=== PATIENT | male | born 1960 | race Caucasian/White ===

== ENCOUNTER 2019-09-16 15:54 | Inpatient (IN) | payer BC ==
[~2019-09-16] VITALS: Ht 185.4 cm; Wt 91.3 kg
[~2019-09-16 15:54] MED LIST: METO50 PO
[2019-09-16 16:46] LABS: BASOPHILS ABSOLUTE AUTO 0.09 K/mm3 (0.00-0.23); BASOPHILS PERCENT AUTO 1 % (0-2); EOSINOPHILS ABSOLUTE AUTO 0.15 K/mm3 (0.00-0.68); EOSINOPHILS PERCENT AUTO 1 % (0-6); Hematocrit 52.8 % (37.0-53.0); Hemoglobin 16.9 g/dL (13.5-17.5); IMMATURE GRAN ABSOLUTE AUTO 0.06 K/mm3 (0.00-0.10); IMMATURE GRAN PERCENT AUTO 0 % (0-1); LYMPHOCYTES ABSOLUTE AUTO 2.12 K/mm3 (0.84-5.20); LYMPHOCYTES PERCENT AUTO 12 % (21-46); MONOCYTES ABSOLUTE AUTO 1.16 K/mm3 (0.16-1.47); MONOCYTES PERCENT AUTO 7 % (4-13); Mean Corpuscular HGB 28.8 pg (26.0-34.0); Mean Corpuscular Volume 90 fL (80-100); Mean Platelet Volume 9.7 fL (9.1-12.4); NEUTROPHILS ABSOLUTE AUTO 13.73 K/mm3 (1.96-9.15); NEUTROPHILS PERCENT AUTO 79 % (41-73); Platelet Count 331 K/mm3 (150-400); RDW Coefficient Variation 12.9 % (11.7-14.2); RDW Standard Deviation 42.5 fL (35.1-46.3); Red Blood Cell Count 5.86 M/mm3 (4.30-5.90); White Blood Cell Count 17.31 K/mm3 (4.00-11.30)
[2019-09-16] MEDS ORDERED: IRBESARTAN300 MG PO (16:54)
[2019-09-16 17:07] LABS: Alanine Aminotransfer (ALT/SGP 99 U/L (12-78); Albumin, Blood 3.5 g/dL (3.4-5.0); Alk Phos 63 U/L (50-136); Anion Gap 10 mmol/L (6-16); Aspartate Aminotrans (AST/SGOT 66 U/L (12-37); Bilirubin, Total 3.4 mg/dL (0.1-1.0); Blood Urea Nitrogen 18 mg/dL (8-24); Bun/Creatinine Ratio 18.7 (12.0-20.0); CO2, Blood 23 mmol/L (21-32); Calcium, Blood 9.2 mg/dL (8.5-10.1); Chloride, Blood 101 mmol/L (98-108); Creatinine, Blood 0.96 mg/dL (0.60-1.20); Globulin, Blood 3.4 g/dL (2.2-4.0); Glomerular Filtration Rate >60 (60-); Glucose, Blood 170 mg/dL (70-99); Potassium, Blood 4.3 mmol/L (3.5-5.5); Sodium, Blood 134 mmol/L (136-145); Total Protein, Blood 6.9 g/dL (6.4-8.2); Troponin I 0.077 ng/mL (0.000-0.040)
[2019-09-16 19:30] LABS: Magnesium, Blood 2.2 mg/dL (1.6-2.4); Phosphorus, Blood 3.4 mg/dL (2.5-4.9)
[2019-09-16 20:31] LABS: PCO2 Arterial 31.8 mmHg (35-45); PO2 Arterial 54.9 mmHg (80-100); pH Blood Arterial 7.39 (7.35-7.45)
--- NOTE | 2019-09-16 21:21 | NUR ---
PT ARRIVES TO ICU AT 2039 VIA STRETCHER WITH 4/10 CHEST PAIN, AND DYSPNEA. HE KEEPS SAYING HE IS FEELING WORSE, MORE SOB, AND DIZZY. PT HAS ADEQUATE BP, HR IS 100, SATS ARE IN 80'S (ALTHOUGH IT IS A POOR WAVEFORM RIGHT NOW). WILL START FLUID BOLUS PER DAWNA, AND GET HIM ON THE BIPAP.
--- NOTE | 2019-09-16 21:42 | NUR ---
UPDATE PT APPEARS TO BE MORE ANXIOUS FROM CHEST PAIN AND OVERALL FEELINGS OF 'CRUMMINESS', AND IS SOB OFF AND ON. HE IS STATING HE FEEL LIKE HE IS DYING, AND HAS ASKED ME TO SLOW DOWN, WHEN TALKING TO HIM, AND THAT HE DOESN'T WANT TO TALK ABOUT HIS CONDITION. HE SEEMS TO BE MORE ANXIOUS AROUND HIS SON AND DAUGHTER. HE IS VERY COLD, AND HIS PRESSURES SEEM TO BE DECREASING. BARTOLOME IN ROOM ASSESSING PT. FLUID BOLUS IS INFUSING AT 500ML/HR FOR A TOTAL VOLUME OF 500ML PER DAWNA REQUEST.
[2019-09-16 22:34] LABS: pH Blood Arterial 7.24 (7.35-7.45)
[2019-09-16 22:35] LABS: PCO2 Arterial 31 mmHg (35-45); PO2 Arterial 63.1 mmHg (80-100)
--- NOTE | 2019-09-16 23:50 | NUR ---
ALEXEI IN ROOM PUTTING IN CENTRAL LINE. PRIOR TO PROCEDURE PT STATED HIS CP WAS ONLY AT A 2 AND HE WASNT SOB. BP IS OKAY CURRENTLY, AND HR IS CONTROLLED. DERRICK IS TALKING WITH SON AND DAUGHTER REGARDING THE CURRENT SITUATION AND PLAN OF CARE.
[2019-09-17 01:03] LABS: International Normalized Ratio 1.54; Prothrombin Time Results 16.1 Sec (9.7-11.5)
[2019-09-17 01:14] LABS: U Amphetamine Screen Not Detected; U Barbituate Screen Not Detected; U Benzodiazapine Screen Not Detected; U Buprenorphine Screen Not Detected; U Cannabinoids Screen Not Detected; U Cocaine Screen Not Detected; U Methadone Screen Not Detected; U Methamphetamine Screen Not Detected; U Opiates Screen DETECTED; U Oxycodone Screen Not Detected; U Phencyclidine Screen Not Detected; U Propoxyphene Screen Not Detected
--- NOTE | 2019-09-17 02:32 | NUR ---
UPDATE PT IS STATING HE "... FEELS BETTER". HIS CHEST PAIN IS MINIMAL, RATING IT AT A 2/10 AND THAT HE DOESN'T FEEL SOB. HIS SKIN IS WARMER THAN BEFORE - WITH STABLE VITALS. HE REMAINS IN AFIB. HE HAS HEPARIN AT 13 UNITS/KG/HR. HE HAS A CENTRAL LINE. I TOOK THE SCHULTE OUT AT HIS PERSISTANT REQUEST. PLAN IS THAT HE WILL USE URINAL, BUT IF HE CANT VOID INTO URINAL I TOLD HIM THAT WE WOULD HAVE TO PUT THE SCHULTE BACK IN. HE REMAINS OFF BIPAP, BUT AGREED TO GO BACK ON IT WHEN HE GOES TO SLEEP. HE WAS TAKEN OFF DOPAMINE, AND CARDIZEM EARLY ON ([phone]) AND WAS NEVER STARTED ON LEVO OR DOBUTAMINE. HE REMAINS IN AFIB, RATE 100-120. BED IS LOW AND LOCKED. CALL LIGHT WITHIN REACH.
[2019-09-17 03:52] LABS: BASOPHILS ABSOLUTE AUTO 0.02 K/mm3 (0.00-0.23); BASOPHILS PERCENT AUTO 0 % (0-2); EOSINOPHILS ABSOLUTE AUTO 0.01 K/mm3 (0.00-0.68); EOSINOPHILS PERCENT AUTO 0 % (0-6); Hematocrit 47.8 % (37.0-53.0); Hemoglobin 15.9 g/dL (13.5-17.5); IMMATURE GRAN ABSOLUTE AUTO 0.14 K/mm3 (0.00-0.10); IMMATURE GRAN PERCENT AUTO 1 % (0-1); LYMPHOCYTES ABSOLUTE AUTO 1.15 K/mm3 (0.84-5.20); LYMPHOCYTES PERCENT AUTO 7 % (21-46); MONOCYTES ABSOLUTE AUTO 1.07 K/mm3 (0.16-1.47); MONOCYTES PERCENT AUTO 6 % (4-13); Mean Corpuscular HGB 29.3 pg (26.0-34.0); Mean Corpuscular HGB Conc 33.3 g/dL (31.5-36.5); Mean Corpuscular Volume 88 fL (80-100); Mean Platelet Volume 9.7 fL (9.1-12.4); NEUTROPHILS ABSOLUTE AUTO 14.97 K/mm3 (1.96-9.15); NEUTROPHILS PERCENT AUTO 86 % (41-73); Platelet Count 264 K/mm3 (150-400); RDW Coefficient Variation 12.9 % (11.7-14.2); RDW Standard Deviation 41.6 fL (35.1-46.3); Red Blood Cell Count 5.42 M/mm3 (4.30-5.90); White Blood Cell Count 17.36 K/mm3 (4.00-11.30)
[2019-09-17 04:12] LABS: Alanine Aminotransfer (ALT/SGP 253 U/L (12-78); Albumin, Blood 3.2 g/dL (3.4-5.0); Albumin/Globulin Ratio 1.1 (0.8-1.8); Alk Phos 53 U/L (50-136); Anion Gap 9 mmol/L (6-16); Aspartate Aminotrans (AST/SGOT 244 U/L (12-37); Bilirubin, Total 4.1 mg/dL (0.1-1.0); Blood Urea Nitrogen 23 mg/dL (8-24); CHOL/HDL RATIO 4.3; CO2, Blood 23 mmol/L (21-32); Calcium, Blood 8.4 mg/dL (8.5-10.1); Chloride, Blood 102 mmol/L (98-108); Cholesterol 98 mg/dL (50-200); Creatinine, Blood 0.96 mg/dL (0.60-1.20); Globulin, Blood 2.8 g/dL (2.2-4.0); Glomerular Filtration Rate >60 (60-); Glucose, Blood 146 mg/dL (70-99); HDL Cholesterol 23 mg/dL (>39); LDL/HDL RATIO 2.9; Low Density Lipoprotein Chol 67 mg/dL (0-110); Potassium, Blood 4.5 mmol/L (3.5-5.5); Sodium, Blood 134 mmol/L (136-145); Triglycerides 38 mg/dL (30-160); Very Low Density Lipoprot Chol 7 mg/dL (6-32)
--- NOTE | 2019-09-17 07:39 | NUR ---
SHIFT SUMMARY PT HAD A MUCH BETTER TIME AFTER THE ACUTE EVENTS THAT OCCURED EARLIER ON. HE HAS BEEN ON BIPAP 24/04, 25% SAT'ING > 93% ALL NIGHT. CHEST PAIN HAS BEEN MINIMAL. ANXIETY/SOB HAS BEEN MINIMAL. HIS HR IS FAST, 100-120; BLOOD PRESSURES HAVE BEEN GREAT. SCHULTE IS OUT. HE HAD 415ML OF URINE THROUGHOUT NIGHT. HIS MENTATION IS BASELINE, TIRED/LETHARGIC - BUT MORE ALERT THAN BEFORE. BED IS LOW AND LOCKED. CALL LIGHT WITHIN REACH. SEE PREVIOUS NOTES FOR DETAILED EVENTS THAT OCCURED.
--- NOTE | 2019-09-17 08:00 | NUR ---
INITIAL ASSESMENT PT ALERT AND AROUSABLE TO VERBAL STIM, FOLLOWS COMMANDS AND DENIES PAIN. AF IN THE 110-130S SBP STABLE PALP THREADY PULSES T/O AND AFEBRILE WITH NO CHEST PAIN. PT REMAINS ON 16/8 BIPAP AND TOLERATING WELL WITH SATS IN HIGH 90S AND NO S/S OF RESP DISTRESS OR SOB. HEPARING AT 13 AND TITRATING PER MD ORDER. NPO AT THIS TIME FOR POSSIBLE CARDIAC INTERVENTION. NO N/V. UO ADEQUATE WITH DARK PATRICIA URINE. WILL CONT TO MONITOR AND PLAN FOR HEART CATH
--- NOTE | 2019-09-17 10:09 | NUR ---
PT UPDATE PT TAKEN TO DEAN OF GRADUATE STUDIES OFF BIPAP PER RT INPUT AND HEPARIN OFF.
--- NOTE | 2019-09-17 11:26 | NUR ---
PT UPDATE PT RETURNED FROM FITTER HAND WITH RIGHT RADIAL APPROACH AND 12CC IN TR BAND BALOON WITH SITE SHOWING NO S/S OF HEMATOMA OR BRUISING AT THIS TIME CLEAN CATH. PT ALERT AND ORIENT, VSS 2L NC WITH SATS WNL AND WILL CONT TO MONITOR
--- NOTE | 2019-09-17 16:00 | NUR ---
PT UPDATE PT SLEEPING BUT AROUSABLE, DENIES PAIN AND HR AND BP STABALIZING. TOLERATING O2 AND WILL WEAN TOLERATED. POOR APPETITE AND UO ADEQUATE WITH DARK PATRICIA CLEAR URINE. TR BAND DEFLATED PER PROTOCOL AND NO S/S OF HEMATOMA OR BLEEDING AT SITE AND RIGHT EXTREM WARM AND GOOD CAP REFILL.
--- NOTE | 2019-09-17 20:00 | NUR ---
ASSUMPTION OF CARE: PT ALERT AND ORIENTED. AFFECT SOMEWHAT FLAT. AFEBRILE. LUNG SOUNDS CLEAR ON RA. SPO2 >90%. PT IN AFIB WITH RVR. HR 110-120S, SBP 130. BT X4. PT ABLE TO VOID ON OWN. LIJ IN PLACE. HEPARIN RUNNING AT 13U/KG/HR. TR BAND IN PLACE ON R RADIAL WRIST. 4ML REMAINING. WILL CONTINUE TO DEFLATE. PT RESTING COMFORTABLY. WILL CONTINUE TO MONITOR.
--- NOTE | 2019-09-17 20:05 | NUR ---
This student nurse has permission to access patient information.
[2019-09-18 00:23] LABS: Adenovirus Not Detected (NOT DETECT); Bordetella pertussis Not Detected (NOT DETECT); Chlamydophila pneumoniae Not Detected (NOT DETECT); Coronavirus 229E Not Detected (NOT DETECT); Coronavirus HKU1 Not Detected (NOT DETECT); Coronavirus NL63 Not Detected (NOT DETECT); Coronavirus OC43 Not Detected (NOT DETECT); Human Metapneumovirus Not Detected (NOT DETECT); Human Rhinovirus/Enterovirus Not Detected (NOT DETECT); Influenza A Not Detected (NOT DETECT); Influenza A/2009-H1 Not Detected (NOT DETECT); Influenza A/H1 Not Detected (NOT DETECT); Influenza A/H3 Not Detected (NOT DETECT); Influenza B Not Detected (NOT DETECT); Mycoplasma pneumoniae Not Detected (NOT DETECT); Parainfluenza Virus 1 Not Detected (NOT DETECT); Parainfluenza Virus 2 Not Detected (NOT DETECT); Parainfluenza Virus 3 Not Detected (NOT DETECT); Parainfluenza Virus 4 Not Detected (NOT DETECT); Respiratory Syncytial Virus Not Detected (NOT DETECT)
--- NOTE | 2019-09-18 01:06 | NUR ---
SLEEP APNEA SHORT PERIODS OF SLEEP APNEA NOTED WITH SATS DECREASING TO 86-87%. 2L BC BACK ON AT THIS TIME.
[2019-09-18 03:37] LABS: pH Blood Venous 7.41 (7.34-7.37)
[2019-09-18 03:38] LABS: Base Excess Venous 2.5 mmol/L; Bicarbonate Venous 25.7 mmol/L (24.0-30.0); PCO2 Venous 42.8 mmHg (38-42); PO2 Venous 45 mmHg (38-42)
[2019-09-18 03:41] LABS: BASOPHILS ABSOLUTE AUTO 0.07 K/mm3 (0.00-0.23); BASOPHILS PERCENT AUTO 1 % (0-2); EOSINOPHILS ABSOLUTE AUTO 0.34 K/mm3 (0.00-0.68); EOSINOPHILS PERCENT AUTO 2 % (0-6); Hematocrit 44.2 % (37.0-53.0); Hemoglobin 14.6 g/dL (13.5-17.5); IMMATURE GRAN ABSOLUTE AUTO 0.05 K/mm3 (0.00-0.10); IMMATURE GRAN PERCENT AUTO 0 % (0-1); LYMPHOCYTES ABSOLUTE AUTO 1.75 K/mm3 (0.84-5.20); LYMPHOCYTES PERCENT AUTO 12 % (21-46); MONOCYTES ABSOLUTE AUTO 0.96 K/mm3 (0.16-1.47); MONOCYTES PERCENT AUTO 7 % (4-13); Mean Corpuscular HGB 29.4 pg (26.0-34.0); Mean Corpuscular Volume 89 fL (80-100); Mean Platelet Volume 9.3 fL (9.1-12.4); NEUTROPHILS ABSOLUTE AUTO 11.14 K/mm3 (1.96-9.15); NEUTROPHILS PERCENT AUTO 78 % (41-73); Platelet Count 251 K/mm3 (150-400); RDW Standard Deviation 42.2 fL (35.1-46.3); Red Blood Cell Count 4.97 M/mm3 (4.30-5.90); White Blood Cell Count 14.31 K/mm3 (4.00-11.30)
[2019-09-18 04:01] LABS: Alanine Aminotransfer (ALT/SGP 201 U/L (12-78); Albumin, Blood 2.8 g/dL (3.4-5.0); Albumin/Globulin Ratio 1.1 (0.8-1.8); Alk Phos 48 U/L (50-136); Anion Gap 6 mmol/L (6-16); Aspartate Aminotrans (AST/SGOT 134 U/L (12-37); Bilirubin, Total 1.5 mg/dL (0.1-1.0); Blood Urea Nitrogen 19 mg/dL (8-24); Bun/Creatinine Ratio 23.2 (12.0-20.0); CO2, Blood 27 mmol/L (21-32); Calcium, Blood 8.1 mg/dL (8.5-10.1); Chloride, Blood 105 mmol/L (98-108); Creatinine, Blood 0.82 mg/dL (0.60-1.20); Globulin, Blood 2.6 g/dL (2.2-4.0); Glomerular Filtration Rate >60 (60-); Glucose, Blood 86 mg/dL (70-99); Potassium, Blood 4.1 mmol/L (3.5-5.5); Sodium, Blood 138 mmol/L (136-145); Total Protein, Blood 5.4 g/dL (6.4-8.2)
--- NOTE | 2019-09-18 05:44 | NUR ---
SHIFT SUMMARY: PT A&O. DENIES PAIN. AFEBRILE. PT IN AFIB WITH RVR. HR 100-120S, SBP IN THE 130S. EF 10%. SPO2 >90% WHEN AWAKE HOWEVER REQUIRES O2 AT 2L VIA NC WHILE SLEEPING. VOIDS ON OWN. LIJ INFUSING. HEPARIN AT 14U/KG/HR. LAST APTT 45.1. PT HAD RESP PANEL SWAB DONE. FLU (-). R RADIAL ACCESS SITE C/D/I. TR BAND OFF, OP-SITE AND ARM BOARD IN PLACE. NO HEMATOMA, TENDERNESS. FULL SENSATION TO DISTAL DIGITS. PT IS CURRENTLY RESTING COMFORTABLY IN BED. WILL GIVE REPORT TO ONCOMING SHIFT
[2019-09-18 07:08] LABS: Digoxin (Lanoxin) 1.12 ug/mL (0.80-2.00)
--- NOTE | 2019-09-18 07:33 | NUR ---
ASSUMED CARE RECEIVED REPORT FROM RAJANI PRUETT. PT IS LYING IN BED ASLEEP. OPSITE ON RIGHT RADIAL SITE THAT IS WNL, NO SIGN OF HEMATOMA. HANDBOARD IN PLACE. HEPARIN IS INFUSING THROUGH LEFT IJ CVC AT 14 UNITS/KG/HOUR. SITE IS WNL. HE IS IN AFIB WITH A RATE BETWEEN 100-120 WITH SOME PVCs. BP STABLE. BED LOW AND LOCKED. CALL LIGHT WITHIN REACH.
--- NOTE | 2019-09-18 07:48 | NUR ---
DR AG IN ROOM WITH PATIENT.
--- NOTE | 2019-09-18 10:23 | NUR ---
UPDATE I HAD A TALK WITH THE PT. WE DISCUSSED CARDIAC RISK FACTORS: DIET (HIGH IN SALT/FATS), THE IMPACT OF STRESS AND HIGH BLOOD PRESSURE, WELL COVERING ALCOHOL. HE TALKED ABOUT GOING THROUGH MAJOR STRESSORS IN HIS LIFE RECENTLY. HE HAS MADE A CHANGE IN HIS DIET, EATING MUCH HEALTHIER THAN PRIOR IN HIS LIFE. DURING THIS TIME HE ALSO MAJORLY CUT BACK ON HIS DRINKING. HIS LAST DRINK WAS TWO WEEKS AGO, THEN TWO WEEKS PRIOR TO THAT, ETC... HE MADE THIS CHANGE DUE TO FEELING UNHEALTHY, BUT HE EXPECTED TO FEEL BETTER - UNFORTUNATLEY HAS HAD MAJOR STRESSORS OCCUR. PT HAS A FLAT AFFECT, AND SEEMS DEPRESSED AT NEW DIAGNOSIS. NO FAMILY HAS COME IN TODAY. HE IS IN CHAIR. HOSPITALIST, MECHANICAL RESEARCH ENGINEER. APPLICATION INTERNSHIP AND NESS HAS CAME BY TODAY. PT HAS BEEN MADE PCU STATUS, BUT WILL REMAIN IN ICU FOR NOW. WE DISCUSSED A POTENTIAL SHOWER AFTER GETTING SOME MORE REST.
--- NOTE | 2019-09-18 15:37 | NUR ---
Attempted to meet with Ambrosio this afternoon. Spoke with nursing who states pt has a lot of current stressors in his life at this time and was recently told of his advanced cardiomyopathy. Nursing reports he appears depressed and has had a lot of visitors from various departments throughout the day. Pt is currently sleeping and did not stir when this machine sign writer entered his room. Pt appears to be comfortably resting at this time. Ambrosio likely needs some space and time to process all of the information he has received and make likely need to grieve about his new diagnosis. Will ask light industrial supervisor Jourdan to visit with pt as a person who Ambrosio can speak to for support.
--- NOTE | 2019-09-18 18:02 | NUR ---
PT LEFT TO U AROUND 174, PT HAD STABLE VITALS - REMAINED IN AFIB WITH THE SAME RATE ALL DAY. PT DENIES CP, SOB, AND NAUSEA. HE LEFT IN A WHEELCHAIR. NO OXYGEN. HE ATE DINNER PRIOR TO LEAVING AND RECIEVED HIS SECOND DOSE OF CORREG.
--- NOTE | 2019-09-18 18:14 | NUR ---
ASSUMED CARE PT ALERT AND ORIENTED. VS STABLE. HR AFIB 90'S. PT ORIENTED TO UNIT AND ROOM. PT ABLE TO AMBULATE TO BATHROOM NEEDED TO VOID. HEARIN GTT INFUSING AND ORDDER CHECKED WITH BLUE LEATHER SORTER. WILL CONTINUE TO MONITOR CLOSELY AND REPORT TO ONCOMING RN. CALL LIGHT IN REACH. FAMILY AT BEDSIDE.
--- NOTE | 2019-09-18 20:18 | NUR ---
ASSUMED CARE OF PT. IN NO ACUTE DISTRESS AT THIS TIME. NO SIGNS OF PAIN NOTED, DENIES ANY NEEDS AT THIS TIME. CALL LIGHT AND POSSESSIONS IN REACH, WILL CONTINUE TO MONITOR.
--- NOTE | 2019-09-19 05:30 | NUR ---
PT REMAINS ASLEEP AT THIS TIME, IN NO ACUTE DISTRESS. WAS MONITORED EVERY 1-2 HOURS WITH NEEDS MET. DENIES ANY NEEDS AT THIS TIME. CALL LIGHT AND POSSESSIONS IN REACH, BED IN LOW POSITION.
[2019-09-19 06:05] LABS: BASOPHILS ABSOLUTE AUTO 0.08 K/mm3 (0.00-0.23); BASOPHILS PERCENT AUTO 1 % (0-2); EOSINOPHILS ABSOLUTE AUTO 0.33 K/mm3 (0.00-0.68); EOSINOPHILS PERCENT AUTO 3 % (0-6); Hematocrit 44.1 % (37.0-53.0); Hemoglobin 14.8 g/dL (13.5-17.5); IMMATURE GRAN ABSOLUTE AUTO 0.03 K/mm3 (0.00-0.10); IMMATURE GRAN PERCENT AUTO 0 % (0-1); LYMPHOCYTES ABSOLUTE AUTO 1.81 K/mm3 (0.84-5.20); LYMPHOCYTES PERCENT AUTO 19 % (21-46); MONOCYTES ABSOLUTE AUTO 0.82 K/mm3 (0.16-1.47); MONOCYTES PERCENT AUTO 9 % (4-13); Mean Corpuscular HGB 29.6 pg (26.0-34.0); Mean Corpuscular HGB Conc 33.6 g/dL (31.5-36.5); Mean Corpuscular Volume 88 fL (80-100); Mean Platelet Volume 9.4 fL (9.1-12.4); NEUTROPHILS ABSOLUTE AUTO 6.54 K/mm3 (1.96-9.15); NEUTROPHILS PERCENT AUTO 68 % (41-73); Platelet Count 258 K/mm3 (150-400); RDW Coefficient Variation 13.1 % (11.7-14.2); RDW Standard Deviation 41.6 fL (35.1-46.3); White Blood Cell Count 9.61 K/mm3 (4.00-11.30)
[2019-09-19 06:27] LABS: Anion Gap 6 mmol/L (6-16); Blood Urea Nitrogen 13 mg/dL (8-24); Bun/Creatinine Ratio 17.6 (12.0-20.0); CO2, Blood 26 mmol/L (21-32); Calcium, Blood 8.8 mg/dL (8.5-10.1); Chloride, Blood 108 mmol/L (98-108); Creatinine, Blood 0.74 mg/dL (0.60-1.20); Glomerular Filtration Rate >60 (60-); Glucose, Blood 94 mg/dL (70-99); Magnesium, Blood 1.9 mg/dL (1.6-2.4); Potassium, Blood 4.2 mmol/L (3.5-5.5); Sodium, Blood 140 mmol/L (136-145)
[2019-09-19 06:35] LABS: Digoxin (Lanoxin) 0.77 ug/mL (0.80-2.00)
--- NOTE | 2019-09-19 16:56 | NUR ---
SHIFT SUMMARY PT A&Ox4. CALM AND COOPERATIVE WITH CARE. PT RESTING IN BED, IND IN ROOM. PT DENIES PAIN, SOB AND NAUSEA T/O SHIFT. HR 100-120'S, 150'S WITH AMBULATION. VSS. RIGHT RADIAL SITE C/D/I; NO BRUING, BLEEDING OR HEMATOMA NOTED. PT TRANSITIONED FROM HEPARIN DRIP TO XARELTO DURING SHIFT. STARTED ON ENTRESTO. VSS. NO OTHER ACUTE CHANGES NOTED. DURING SHIFT. WILL CONTINUE TO MONITOR UNTIL REPORT GIVEN TO ONCOMING RN.
--- NOTE | 2019-09-19 19:20 | NUR ---
ASSUMED CARE OF PT. RESTING COMFORTABLY AT THIS TIME, IN NO ACUTE DISTRESS. DENIES PAIN. DENIES ANY NEEDS AT THIS TIME. CALL LIGHT AND POSSESSIONS IN REACH, UNOBSTRUCTED PATH TO THE BATHROOM. WILL CONTINUE TO MONITOR.
[2019-09-20 04:23] LABS: Hematocrit 50.7 % (37.0-53.0); Hemoglobin 16.7 g/dL (13.5-17.5); Mean Corpuscular HGB 29.3 pg (26.0-34.0); Mean Corpuscular HGB Conc 32.9 g/dL (31.5-36.5); Mean Corpuscular Volume 89 fL (80-100); Mean Platelet Volume 9.2 fL (9.1-12.4); Platelet Count 290 K/mm3 (150-400); RDW Coefficient Variation 13.2 % (11.7-14.2); RDW Standard Deviation 42.4 fL (35.1-46.3); White Blood Cell Count 8.87 K/mm3 (4.00-11.30)
[2019-09-20 04:37] LABS: Albumin, Blood 3.1 g/dL (3.4-5.0); Anion Gap 5 mmol/L (6-16); Blood Urea Nitrogen 12 mg/dL (8-24); Bun/Creatinine Ratio 17.4 (12.0-20.0); CO2, Blood 27 mmol/L (21-32); Calcium, Blood 9.1 mg/dL (8.5-10.1); Chloride, Blood 108 mmol/L (98-108); Creatinine, Blood 0.69 mg/dL (0.60-1.20); Glomerular Filtration Rate >60 (60-); Glucose, Blood 104 mg/dL (70-99); Phosphorus, Blood 3.1 mg/dL (2.5-4.9); Potassium, Blood 4.3 mmol/L (3.5-5.5); Sodium, Blood 140 mmol/L (136-145)
--- NOTE | 2019-09-20 06:54 | NUR ---
PT RESTING IN BED COMFORTABLY IN NO ACUTE DISTRESS. WAS MONITORED EVERY 1-2 HOURS WITH NEEDS MET. DENIES ANY NEEDS AT THIS TIME. CALL LIGHT AND POSSESSIONS IN REACH, BED IN LOW AND LOCKED POSITION, SIDE RAILS IN POSITION.
--- NOTE | 2019-09-20 17:39 | NUR ---
SHIFT SUMMARY PT A&Ox4; CALM AND COOPERATIVE WITH CARE. PT RESTING IN BED DURING SHIFT. UP IN ROOM IND. PT DENIES SOB; PAIN; CHEST PAIN/PRESSURE; AND NAUSEA T/O SHIFT. PT RECEIVING IV ANTIBIOTICS. RIGHT RADIAL SITE REMAINS UNCHANGED. PLANS TO GO HOME WITH [employer]; INFORMATION FAXED THIS AFTERNOON; FORMS IN CHART. VSS. NO OTHER ACUTE CHANGES NOTED DURING SHIFT. WILL CONTINUE TO MONITOR UNTIL REPORT GIVEN TO ONCOMING RN.
--- NOTE | 2019-09-20 19:35 | NUR ---
ASSUMED CARE OF PT. IN NO ACUTE DISTRESS AT THIS TIME. DENIES ANY CHEST PAIN OR PRESSURE. DENIES PAIN. RESTING COMFORTABLY AT THIS TIME. CALL LIGHT AND POSSESSIONS IN REACH, WILL CONTINUE TO MONITOR.
--- NOTE | 2019-09-21 07:38 | NUR ---
PT RESTING COMFORTABLY AT THIS TIME, IN NO ACUTE DISTRESS. WAS MONITORED EVERY 1-2 HOURS WITH NEEDS MET, DENIES ANY NEEDS AT THIS TIME. CALL LIGHT AND POSSESSIONS IN REACH, BED IN LOW POSITION.
--- NOTE | 2019-09-21 11:56 | NUR ---
Patient is lying in bed and alert. Patient immediately shares about some frustrations he is having with his care and he agrees to talk to patient advocate. Patient then shares about some personal struggles that have been stressful. I listen to patient, noramalize patient's experience, explore his jain beliefs, and provide pastoral care and prayer. Patient responds well and shows signs of restored adrianne. Patient voices appreciation for the visit. I will continue to remain available tp patient and family.
--- NOTE | 2019-09-21 12:29 | NUR ---
THIS RN TO ROOM FOR ROUNDING AND VITALS, PT BECOMES HOSTILE AND SHOUTING AT THIS RN WITH RACIAL COMMENTS ABOUT HOSPITALIST THEN STS "SHE DON'T HAVE ANYTHING BUT CREDENTIALS, SHE COMES IN HERE ACTING LIKE SHE KNOWS EVERYTHING AND SHE DON'T KNOW ANYTHING" PT ASKED IF HE WOULD LIKE TO TALK ABOUT WHAT HAPPENED PT STS "NO I WILL DEAL WITH IT ON MY OWN LATER" VITALS ARE OBTAINED PT IS UPDATED THAT [facility] WILL ARRIVE AT 1530 TODAY PT STS "I DON'T EVEN THINK I NEED THAT" PT IS EDUCATED ON PURPOSE FOR VEST AND HIS RIGHTS TO REFUSE PT STS "I'LL JUST WAIT UNTIL THEY GET HERE AND HAVE THEM TELL ME IF I NEED IT"
[2019-09-21] MEDS ORDERED: LANOXIN125 MCG PO (14:27)
[2019-09-21] MEDS ORDERED: CARV6.25 PO (14:27)
[2019-09-21] MEDS ORDERED: SPIR25 PO (14:28)
[2019-09-21] MEDS ORDERED: XARELTO20 MG PO (14:28)
[2019-09-21] MEDS ORDERED: ENTRESTO 24 MG1 EACH PO (14:28)
[2019-09-21] MEDS ORDERED: TORSE20 PO (14:29)
--- NOTE | 2019-09-21 18:36 | NUR ---
SHIFT NOTE PT IS PROVIDED WITH D/C PAPERS, THOROUGHLY EDUCATED ABOUT D/C MEDS AND SIDE EFFECTS WHICH HE EXPRESSED UNDERSTANDING OF. PT WAS GIVEN AN APPOINTMENT WITH DR ARZOLA 10/08/2019 AT 0830 WHICH HE WAS PROVIDED WITH AND EXPRESSED UNDERSETANDING. PT BECAME AGITATED AT D/C "STRESS" WAS NOT MENTIONED DURING HIS D/C. PT HAS NOT MENTIONED ANYTHING ABOUUT STRESS TO STAFF UNTIL NOW THAT THIS RN WAS AWARE OF. PT STS "I AM NOT GOING TO TALK ABOUT IT I AM JUST GOING TO GET PISSED OFF" PT PROVIDED WITH BELONGINGS, ASKED ABOT HIS RIDE PT STS "YOU'RE JUST TRYING TO THROW ME OUT" PT REMINDED THAT HE IS NOT BEING THROWN OUT THAT HE IS WELCOME TO STAY IN ROOM UNTIL RIDE ARRIVES PT PROVIDED WITH CALL LIGHT TO CALL WHEN RIDE ARRIVES
== END 2019-09-21 18:47 | disposition home or self-care (01) | DRG 280 ==
LOC: ER 15:54 → ICUW 20:44 → ICUE 20:44 → PCU 09-18 17:51
PROVIDERS: Internal Medicine; Internal Medicine Cardiovascular Disease; Internal Medicine Pulmonary Disease; Nurse Practitioner Acute Care; Physician Assistant; ADMIT Internal Medicine
PROC: 3E043XZ Introduction of Vasopressor into Central Vein, Percutaneous Approach (ICD-10-PCS; principal; 2019-09-17)
PROC: 3E033XZ Introduction of Vasopressor into Peripheral Vein, Percutaneous Approach (ICD-10-PCS; 2019-09-17)
PROC: 5A09357 Assistance with Respiratory Ventilation, Less than 24 Consecutive Hours, Continuous Positive Airway Pressure (ICD-10-PCS; 2019-09-17)
PROC: B2111ZZ Fluoroscopy of Multiple Coronary Arteries using Low Osmolar Contrast (ICD-10-PCS; 2019-09-17)
PROC: 4A023N7 Measurement of Cardiac Sampling and Pressure, Left Heart, Percutaneous Approach (ICD-10-PCS; 2019-09-17)
PROC: 4A033BC Measurement of Arterial Pressure, Coronary, Percutaneous Approach (ICD-10-PCS; 2019-09-17)
DX: I48.91 Unspecified atrial fibrillation (principal); A41.9 Sepsis, unspecified organism; I21.A1 Myocardial infarction type 2; G92 Toxic encephalopathy; J96.01 Acute respiratory failure with hypoxia; I50.21 Acute systolic (congestive) heart failure; J18.9 Pneumonia, unspecified organism; K72.00 Acute and subacute hepatic failure without coma; E87.2 Acidosis; F10.188 Alcohol abuse with other alcohol-induced disorder; I42.0 Dilated cardiomyopathy; I25.10 Atherosclerotic heart disease of native coronary artery without angina pectoris; I11.0 Hypertensive heart disease with heart failure; F32.9 Major depressive disorder, single episode, unspecified
CPT/HCPCS: 0099U; 36415; 36556; 36600; 51703; 71045; 71260; 76937; 80048; 80053; 80061; 80069; 80162; 82803; 83605; 83735; 83880; 84100; 84145; 84443; 84484; 85025; 85027; 85347; 85610; 85730; 87040; 92978; 93005; 93010; 93306; 93458; 93571; 94660; 96365; 96367; 96375; 96376; 99152; 99153; 99285-25; A9270; C1751; C1753; C1769; C1894; G0480; J0456; J0696; J1160; J1265; J1644; J1650; J1940; J2060; J2250; J2270; J2310; J3010; J3370; J7030; J7040; J7050; Q9967

== ENCOUNTER 2021-01-17 19:57 | Inpatient (IN) | payer BC ==
[~2021-01-17] VITALS: Ht 185.4 cm; Wt 107.4 kg
[~2021-01-17 19:57] MED LIST changes: +CARV6.25 PO; +ENTRESTO 24 MG1 EACH PO; +IRBESARTAN300 MG PO; +LANOXIN125 MCG PO; +SPIR25 PO; +TORSE20 PO; +XARELTO20 MG PO
[2021-01-17 21:03] LABS: BASOPHILS ABSOLUTE AUTO 0.06 K/mm3 (0.00-0.23); BASOPHILS PERCENT AUTO 1 % (0-2); EOSINOPHILS ABSOLUTE AUTO 0.19 K/mm3 (0.00-0.68); EOSINOPHILS PERCENT AUTO 2 % (0-6); Hematocrit 44.7 % (37.0-53.0); Hemoglobin 15.5 g/dL (13.5-17.5); IMMATURE GRAN ABSOLUTE AUTO 0.02 K/mm3 (0.00-0.10); IMMATURE GRAN PERCENT AUTO 0 % (0-1); LYMPHOCYTES ABSOLUTE AUTO 2.23 K/mm3 (0.84-5.20); LYMPHOCYTES PERCENT AUTO 25 % (21-46); MONOCYTES ABSOLUTE AUTO 0.61 K/mm3 (0.16-1.47); MONOCYTES PERCENT AUTO 7 % (4-13); Mean Corpuscular HGB 29.1 pg (26.0-34.0); Mean Corpuscular HGB Conc 34.7 g/dL (31.5-36.5); Mean Corpuscular Volume 84 fL (80-100); Mean Platelet Volume 9.5 fL (9.1-12.4); NEUTROPHILS ABSOLUTE AUTO 5.69 K/mm3 (1.96-9.15); NEUTROPHILS PERCENT AUTO 65 % (41-73); Platelet Count 280 K/mm3 (150-400); RDW Coefficient Variation 11.9 % (11.7-14.2); RDW Standard Deviation 35.8 fL (35.1-46.3); Red Blood Cell Count 5.33 M/mm3 (4.30-5.90)
[2021-01-17 21:26] LABS: Alanine Aminotransfer (ALT/SGP 30 U/L (12-78); Albumin, Blood 3.8 g/dL (3.4-5.0); Albumin/Globulin Ratio 1.1 (0.8-1.8); Alk Phos 72 U/L (50-136); Anion Gap 7 mmol/L (6-16); Aspartate Aminotrans (AST/SGOT 15 U/L (12-37); Bilirubin, Total 1.1 mg/dL (0.1-1.0); Blood Urea Nitrogen 21 mg/dL (8-24); Bun/Creatinine Ratio 20.6 (12.0-20.0); CO2, Blood 26 mmol/L (21-32); Calcium, Blood 9.2 mg/dL (8.5-10.1); Chloride, Blood 107 mmol/L (98-108); Creatinine, Blood 1.02 mg/dL (0.60-1.20); Globulin, Blood 3.6 g/dL (2.2-4.0); Glomerular Filtration Rate >60 (60-); Glucose, Blood 143 mg/dL (70-99); Magnesium, Blood 2.3 mg/dL (1.6-2.4); Potassium, Blood 3.7 mmol/L (3.5-5.5); Sodium, Blood 140 mmol/L (136-145); Total Protein, Blood 7.4 g/dL (6.4-8.2)
[2021-01-17 21:30] LABS: Thyroid Stimulating Hormone 0.909 uIU/mL (0.360-4.800)
[2021-01-17 23:20] LABS: SARS-Cov-2 (COVID-19) PCR, MMC NEGATIVE (NEGATIVE)
--- NOTE | 2021-01-17 23:45 | NUR ---
LOW BP PT LAYING IN BED W/ PRIMARY RN STARTING PIV WHEN PT SUDDENLY REPORTING "I FEEL FUNNY." PT REPORTING NAUSEA & LIGHTHEADED/DIZZINESS. PT BP LOW. MONITOR SHOWING AFIB, HR 60's-90's. PT REPORTS NAUSEA IMPROVEMENT AFTER SIP OF TOM MIST ALREADY AT BEDSIDE. BP RECHECKED 5 MINUTES LATER W/ BP IMPROVEMENT & PT ALSO REPORTING IMPROVEMENT IN SYMPTOMS.
[2021-01-18 05:39] LABS: Anion Gap 6 mmol/L (6-16); Blood Urea Nitrogen 19 mg/dL (8-24); CO2, Blood 27 mmol/L (21-32); Chloride, Blood 104 mmol/L (98-108); Creatinine, Blood 0.95 mg/dL (0.60-1.20); Glomerular Filtration Rate >60 (60-); Glucose, Blood 110 mg/dL (70-99); Sodium, Blood 137 mmol/L (136-145)
--- NOTE | 2021-01-18 06:24 | NUR ---
PRESSER HAND SUMMARY PT IS AXO X4 AND COOPERATIVE W CARE. THE PT DENIED ANY CP OR PRESSURE THIS SHIFT. TELE- AFIB 90-120'S. AFTER INSERTION OF A PERIPHERAL IV THE PT HAD C/O FEELING "WEIRD" SO VITAL SIGNS WERE TAKEN AND THE PT HAD A BP OF 75/45. PT WAS GIVEN TOM MIST NAUSEA WHICH HE SAID HELPED AND REPEAT BP'S WERE TAKEN WHICH SHOWED A RESOLVING LOW BP WHICH SHORTLY WAS BACK UP TO 100'S/60'S. PT DENIED ANY DYSPNEA THIS SHIFT AND MAINTAINED O2 SATS >92% ON RM AIR. PT NPO SINCE MIDNIGHT FOR PROCEDURE, WCTM.
[2021-01-18 07:30] LABS: Calcium, Blood 8.9 mg/dL (8.5-10.1)
--- NOTE | 2021-01-18 08:02 | NUR ---
pt laying in bed being prepared for a aristides, he is a/ox3, cooperative with care, follows commands well, denies pain, lungs are clear t/o, resp even and unlabored, no cough noted, hrirr, tele in place running afib at 100bpm, no edema noted, ppp+1, cap refilll <3sec, vs stable, afebrile, iv site is clear and patent, btx4, abd flat soft nontender, voids without diff, skin c/w/d, maew, tina, call light in reach.
--- NOTE | 2021-01-18 08:19 | NUR ---
0819-CLASSIFICATION CLERK, CLINICAL COORDINATOR, ASTHMA EDUCATOR, AND DR. MEZA AT BEDSIDE FOR MARK CARDIOVERSION. TIME OUT PERFORMED. SEDATION MEDICATIONS GIVEN BY MANE SILVESTRE RN. 0828- MARK PROBE PASSED AND MARK IN PROGRESS. 0836-MARK PROBE OUT. PROCEEDING TO CARDIOVERSION 0839-ADDITIONAL MEDS GIVEN FOR CARDIOVERSION SEDATION-SEE FLOW SHEET. PT IS DROWSY BUT ABLE TO RESPOND TO VERBAL STIMULI. SYNCRONIZED CARDIOVERSION WITH 200J, RETURNING RHYTHM IS SINUS AT 67. 0840-PATIENT CONVERTED BACK INTO A-FIB IN THE LOW 100S. 0841-SYNCRONIZED CARDIOVERSION WITH 200J, RETURNING RHYTHM SINUS AT 67 BPM. 0847-PT IS SNORING, CHIN LIFT MANUEVER BY RESPIRATORY THERAPY. 0848-PT CARDIOVERTED WITH 200J, RETURNING RHYTHM SR AT 72. 0849-PT CONVERTED BACK INTO A-FIB IN THE 90S. VSS. 0850-DR. MEZA TALKED WITH THE PATIENT AND LET HIM KNOW THE PROCEDURE WAS NOT SUCCESSFUL FOR MAINTAINING SINUS RHYTHM, SHE ATTRIBUTES THAT POSSIBLY TO SLEEP APNEA. SHE TALKED WITH THE PATIENT ABOUT STARTING AMIODARONE AND HAVING TO STAY ONE MORE NIGHT FOR THE AMIO LOADING PROTOCOL. CLASSIFICATION CLERK GABE AT BEDSIDE TO MONITOR PATIENT DURING RECOVERY.
--- NOTE | 2021-01-18 08:52 | NUR ---
MARK/CARDIOVERSION: See sedation record for times. Time out was performed. Devon Duque with echo, So RT, Alexandra RN, Katya RN and 3 [facility] nursing students present. Pt VSS. Was medicated with Versed and Fentynal. MARK performed then cardioversion attempted. 3 shocks total were performed. Pt would convert to NSR they go back to Afib within 2 minutes. VSS throughout the procedure. Dr. Mathew to place orders. Will follow through. Will continue to monitor and treat per orders.
--- NOTE | 2021-01-18 11:58 | NUR ---
pt was started on amiodorone, v.s. a bit low, held all am b/p meds per Dr. Mathew, pt states he's very tired. no further changes. call light in reach.
--- NOTE | 2021-01-18 17:54 | NUR ---
pt continues on amio gtt, v.s. stable. no complaints or needs. call light in reach.
[2021-01-19 05:20] LABS: Anion Gap 5 mmol/L (6-16); Blood Urea Nitrogen 15 mg/dL (8-24); CO2, Blood 26 mmol/L (21-32); Chloride, Blood 106 mmol/L (98-108); Glomerular Filtration Rate >60 (60-); Glucose, Blood 89 mg/dL (70-99); Sodium, Blood 137 mmol/L (136-145)
--- NOTE | 2021-01-19 05:29 | NUR ---
UNEVENTFUL NOC. PT SLEPT WELL. VSS. NO C/O C/P DISCOMFORT. NO ABNORMAL LABS. CALLS APPROPRIATELY. CALL LIGHT WITHIN REACH.
--- NOTE | 2021-01-19 08:00 | NUR ---
pt laying in bed awake a/ox3, pleasant and cooperative with care, follows commands well, denies pain, or sob, states he feels ok, lungs are clear t/o, resp even and unlabored, no cough noted, hrirr, tele in place running afib per monitor, at a rate in the 80's, no edema noted, ppp+2, cap refill <3sec, vs stable, afebrile, iv site is clear and patent, btx4, abd flat soft nontender, voids without diff, skin c/w/d,maew, up indep, tina, call light in reach.
[2021-01-19] MEDS ORDERED: Amiodarone HCl200 MG PO ×2 (11:44→11:46)
[2021-01-19] MEDS ORDERED: AMIODARONE HCL200 M1 PO (11:47)
--- NOTE | 2021-01-19 12:46 | NUR ---
PT HAS BEEN DISCHARGED TO HOME, WENT OVER DISCHARGE INSTRUCTIONS WITH HIM, HE VERBALIZED UNDERSTANDING, WENT OVER HIS TAPERING AMIODORONE DOSE THREE TIMES, AND ENCOURAGED HIM TO CALL US OR OFFICE IF HE HAD ANY QUESTIONS, IV REMOVED INTACT, LEFT VIA WHEELCHAIR WITH AIRCRAFT GENERAL REPAIR MECHANIC IN ATTENDENCE WITH ALL HIS BELONGINGS.
== END 2021-01-19 12:40 | disposition home or self-care (01) | DRG 309 ==
LOC: PCU 19:57
PROVIDERS: ADMIT Internal Medicine Cardiovascular Disease
PROC: 5A2204Z Restoration of Cardiac Rhythm, Single (ICD-10-PCS; principal; 2021-01-19)
DX: I48.91 Unspecified atrial fibrillation (principal); I50.22 Chronic systolic (congestive) heart failure; I25.3 Aneurysm of heart; Z20.822 Contact with and (suspected) exposure to COVID-19; I11.0 Hypertensive heart disease with heart failure; I25.10 Atherosclerotic heart disease of native coronary artery without angina pectoris; E66.9 Obesity, unspecified; E87.6 Hypokalemia; I70.0 Atherosclerosis of aorta; I08.1 Rheumatic disorders of both mitral and tricuspid valves; F41.9 Anxiety disorder, unspecified; I42.8 Other cardiomyopathies; F10.10 Alcohol abuse, uncomplicated; I25.2 Old myocardial infarction; Z68.31 Body mass index [BMI] 31.0-31.9, adult; Z91.14 Patient's other noncompliance with medication regimen; Z88.5 Allergy status to narcotic agent; Z79.01 Long term (current) use of anticoagulants; Z79.899 Other long term (current) drug therapy
CPT/HCPCS: 36415; 80048; 80053; 83735; 84443; 84484; 85025; 93005; 93010; 93312; 93325; 96374; A9270; G0378; J0282; J2250; J2310; J3010; J7040; J7060; U0004

== ENCOUNTER 2021-03-22 10:34 | Day surgery (SDC) | payer BC ==
[~2021-03-22] VITALS: Ht 185.4 cm; Wt 109.0 kg
[~2021-03-22 10:34] MED LIST changes: +AMIODARONE HCL200 M1 PO; +Amiodarone HCl200 MG PO
== END 2021-03-22 23:11 | disposition home or self-care (01) ==
LOC: MHTC 10:34 → ORD 12:00 → ORSCSDS 12:00 → MHTC 23:11
DX: I48.91 Unspecified atrial fibrillation (principal)
CPT/HCPCS: 92960; 93005; 93010; J2704; J7030

== ENCOUNTER 2024-06-09 19:29 | Inpatient (IN) | payer MEDICARE, OTHER ==
[~2024-06-09] VITALS: Ht 185.4 cm; Wt 113.4 kg
[2024-06-09] MEDS ORDERED: FentaNYL Citrate 50 MCG/ML 2 ML Injection IV ONE (20:50)
[2024-06-09] MEDS ORDERED: HYDROmorphone HCl/Pf 1MG SYR IV ONE ×2 (22:00→23:45)
[2024-06-09 22:40] LABS: BASOPHILS ABSOLUTE AUTO 0.06 K/mm3 (0.00-0.23); BASOPHILS PERCENT AUTO 0 % (0-2); EOSINOPHILS PERCENT AUTO 1 % (0-6); Hematocrit 48.5 % (37.0-53.0); Hemoglobin 16.7 g/dL (13.5-17.5); IMMATURE GRAN ABSOLUTE AUTO 0.06 K/mm3 (0.00-0.10); IMMATURE GRAN PERCENT AUTO 0 % (0-1); LYMPHOCYTES ABSOLUTE AUTO 1.39 K/mm3 (0.84-5.20); LYMPHOCYTES PERCENT AUTO 10 % (21-46); MONOCYTES ABSOLUTE AUTO 0.74 K/mm3 (0.16-1.47); MONOCYTES PERCENT AUTO 5 % (4-13); Mean Corpuscular HGB 29.3 pg (26.0-34.0); Mean Corpuscular HGB Conc 34.4 g/dL (31.5-36.5); Mean Corpuscular Volume 85 fL (80-100); Mean Platelet Volume 9.2 fL (9.1-12.4); NEUTROPHILS PERCENT AUTO 83 % (41-73); Platelet Count 254 K/mm3 (150-400); RDW Coefficient Variation 12.7 % (11.7-14.2); RDW Standard Deviation 39.1 fL (35.1-46.3); Red Blood Cell Count 5.69 M/mm3 (4.30-5.90); White Blood Cell Count 13.75 K/mm3 (4.00-11.30)
[2024-06-09 23:00] LABS: Albumin/Globulin Ratio 1.1 (0.8-1.8); Bilirubin, Total 1.7 mg/dL (0.1-1.0); Bun/Creatinine Ratio 17.1 (12.0-20.0); Calcium, Blood 9.7 mg/dL (8.5-10.1); Globulin, Blood 3.5 g/dL (2.2-4.0); Total Protein, Blood 7.5 g/dL (6.4-8.2)
[2024-06-09 23:05] LABS: International Normalized Ratio 1.07; Prothrombin Time Results 11.4 Sec (9.7-11.5)
[2024-06-09] MEDS ORDERED: OxyCODONE HCL 5 MG TAB PO PRN (23:19)
[2024-06-09] MEDS ORDERED: Acetaminophen 500 MG Tab PO PRN (23:20)
[2024-06-09] MEDS ORDERED: HYDROmorphone HCl/Pf 1MG SYR IV PRN (23:20)
[2024-06-09] MEDS ORDERED: FLU VACC TS2024-25(6MOS UP)/PF 45 MCG/0.5 ML SYRINGE IM ONE (23:25)
[2024-06-09] MEDS ORDERED: Naloxone HCl 0.4MG / ML 1ML Vial IV PRN (23:30)
[2024-06-09] MEDS ORDERED: Bisacodyl 10 MG Supp PR PRN (23:30)
[2024-06-09] MEDS ORDERED: Magnesium Hydroxide Conc 10 ML UDC PO PRN (23:30)
[2024-06-10 01:01] VITALS: BP 149/81
[2024-06-10 04:54] LABS: BASOPHILS ABSOLUTE AUTO 0.03 K/mm3 (0.00-0.23); BASOPHILS PERCENT AUTO 0 % (0-2); EOSINOPHILS ABSOLUTE AUTO 0.08 K/mm3 (0.00-0.68); EOSINOPHILS PERCENT AUTO 1 % (0-6); Hematocrit 46.7 % (37.0-53.0); Hemoglobin 15.8 g/dL (13.5-17.5); IMMATURE GRAN ABSOLUTE AUTO 0.06 K/mm3 (0.00-0.10); IMMATURE GRAN PERCENT AUTO 1 % (0-1); LYMPHOCYTES ABSOLUTE AUTO 2.29 K/mm3 (0.84-5.20); LYMPHOCYTES PERCENT AUTO 18 % (21-46); MONOCYTES ABSOLUTE AUTO 1.06 K/mm3 (0.16-1.47); MONOCYTES PERCENT AUTO 8 % (4-13); Mean Corpuscular HGB 29.1 pg (26.0-34.0); Mean Corpuscular HGB Conc 33.8 g/dL (31.5-36.5); Mean Corpuscular Volume 86 fL (80-100); NEUTROPHILS ABSOLUTE AUTO 9.53 K/mm3 (1.96-9.15); NEUTROPHILS PERCENT AUTO 73 % (41-73); Platelet Count 233 K/mm3 (150-400); RDW Coefficient Variation 12.7 % (11.7-14.2); RDW Standard Deviation 39.8 fL (35.1-46.3); Red Blood Cell Count 5.43 M/mm3 (4.30-5.90); White Blood Cell Count 13.05 K/mm3 (4.00-11.30)
--- NOTE | 2024-06-10 05:05 | NUR ---
SHIFT SUMMARY PATIENT GIVEN DILAUDID ONCE AND OXYCODONE ONCE. WAS VERY CONCERNED ABOUT NOT GETTING HIS MEDS, ESPECIALLY THE BLOOD THINNER. I EVEN CALLED HOSPITLIST TO CHECK THAT THIS WAS NOT AN OVERSIGHT BY US.TELE SR 63
[2024-06-10 05:31] LABS: Albumin, Blood 3.6 g/dL (3.4-5.0); Albumin/Globulin Ratio 1.1 (0.8-1.8); Bilirubin, Total 1.5 mg/dL (0.1-1.0); Bun/Creatinine Ratio 17.9 (12.0-20.0); Calcium, Blood 9.2 mg/dL (8.5-10.1); Creatinine, Blood 0.84 mg/dL (0.60-1.20); Globulin, Blood 3.3 g/dL (2.2-4.0); Potassium, Blood 4.1 mmol/L (3.5-5.5); Total Protein, Blood 6.9 g/dL (6.4-8.2)
[2024-06-10 05:57] VITALS: BP 118/73
[2024-06-10 07:37] VITALS: BP 135/79
[2024-06-10] MEDS ORDERED: Carvedilol 6.25 MG Tab PO SCH (08:00)
[2024-06-10] MEDS ORDERED: Sennosides 8.6 MG Tab PO SCH (09:00)
[2024-06-10] MEDS ORDERED: Docusate Sodium 100 MG Cap PO SCH (09:00)
[2024-06-10] MEDS ORDERED: Spironolactone 12.5 MG TAB PO SCH (09:00)
[2024-06-10] MEDS ORDERED: Spironolactone 25 MG Tab PO SCH (09:00)
[2024-06-10] MEDS ORDERED: Sacubitril/Valsartan 24 MG-26 MG Tab PO SCH (09:00)
[2024-06-10] MEDS ORDERED: Ketorolac Tromethamine 15mg Vial IV ONE (10:05)
[2024-06-10] MEDS ORDERED: OxyCODONE 10/Acetamin 325 TABLET PO PRN (12:15)
[2024-06-10] MEDS ORDERED: Ketorolac Tromethamine 15mg Vial IV PRN (12:20)
[2024-06-10] MEDS ORDERED: HYDROmorphone HCl/Pf 1MG SYR IV PRN (14:20)
[2024-06-10] MEDS ORDERED: ATORVASTATIN CA20 MG PO (17:39)
[2024-06-10] MEDS ORDERED: NITR.4SL SL (17:40)
[2024-06-10] MEDS ORDERED: CARVEDILOL12.5 MG PO (17:40)
[2024-06-10] MEDS ORDERED: Rivaroxaban 10 MG Tab PO SCH ×2 (18:00→22:26)
[2024-06-10 18:12] VITALS: BP 125/74
--- NOTE | 2024-06-10 18:53 | NUR ---
SHIFT SUMMARY PATIEMT ALERT AND INTERACTIVE. PATIENT UP OUT OF BED X1 FOR SHOWER. PATIENT INSISTED ON SHOWERING INDEPENDENTLY. PATIENT CONTINUES TO NEED FREQUENT MEDICATING FOR PAIN BUT HAS IMPROVED OVER THE DAY. PATIENT EDUCATED ON PAIN CONTROL, IMPORTANCE OF MOBILIZING, DISCHARGE PLAN, COUGHING AND DEEP BREATHING, SPLINTING WHEN COUGHING, AND USE IF IS AND FLUTTER VALVE.
[2024-06-10 20:20] VITALS: BP 134/77
[2024-06-11 03:46] VITALS: BP 157/91
--- NOTE | 2024-06-11 04:56 | NUR ---
SHIFT SUMMARY: PT ALERT ORIENTED X 4. HAS BEEN ANXIOUS THIS SHIFT R/T HOSPITAL STAY AND FXS. PT GOT UP TO THE BATHROOM REQUIRES MAX ASSIST WITH TRANSFERS. WHEN HE GOT UP HE SAID THE PAIN TO HIS BACK AND HIS RT WRIST WAS MORE SEVERE. MEDICATED HIM WITH DILAUDID, TORADOL AND PERCOCET. REMAINS ON TELEMETRY AT [facility] WITH A RATE OF 67. HE USES A CPAP AT HOME SO HE WAS PUT ON 2L O2 VIA NC WHILE SLEEPING. REMAINS ON A BEDSIDE CONTINUOUS PULSE OX. HAS BEEN SATTING 97%. BRACE INTACT TO RT ARM WITH GOOD CMS. PT WAS CONCERNED ABOUT RESTARTING HIS XARELTO SO I CALLED MONICA WEINER AND GOT A ORDER TO RESTART HIS XARELTO AND IT WAS GIVEN. RESTING IN BED AT THIS TIME. VSS ON 2L VIA NC
[2024-06-11 07:36] VITALS: BP 138/86
[2024-06-11] MEDS ORDERED: Polyethylene Glycol 3350 17 gm PO PRN (07:45)
[2024-06-11 08:13] LABS: BASOPHILS ABSOLUTE AUTO 0.07 K/mm3 (0.00-0.23); BASOPHILS PERCENT AUTO 1 % (0-2); EOSINOPHILS ABSOLUTE AUTO 0.26 K/mm3 (0.00-0.68); EOSINOPHILS PERCENT AUTO 3 % (0-6); Hematocrit 45.7 % (37.0-53.0); Hemoglobin 15.3 g/dL (13.5-17.5); IMMATURE GRAN ABSOLUTE AUTO 0.05 K/mm3 (0.00-0.10); IMMATURE GRAN PERCENT AUTO 1 % (0-1); LYMPHOCYTES ABSOLUTE AUTO 2.61 K/mm3 (0.84-5.20); LYMPHOCYTES PERCENT AUTO 25 % (21-46); MONOCYTES ABSOLUTE AUTO 0.93 K/mm3 (0.16-1.47); MONOCYTES PERCENT AUTO 9 % (4-13); Mean Corpuscular HGB 28.9 pg (26.0-34.0); Mean Corpuscular HGB Conc 33.5 g/dL (31.5-36.5); Mean Corpuscular Volume 86 fL (80-100); NEUTROPHILS ABSOLUTE AUTO 6.38 K/mm3 (1.96-9.15); NEUTROPHILS PERCENT AUTO 62 % (41-73); Platelet Count 205 K/mm3 (150-400); RDW Coefficient Variation 12.5 % (11.7-14.2); RDW Standard Deviation 39.7 fL (35.1-46.3)
[2024-06-11 08:32] LABS: Albumin, Blood 3.3 g/dL (3.4-5.0); Bilirubin, Total 2.3 mg/dL (0.1-1.0); Bun/Creatinine Ratio 21.2 (12.0-20.0); Creatinine, Blood 0.8 mg/dL (0.60-1.20); Globulin, Blood 3.4 g/dL (2.2-4.0); Potassium, Blood 4.3 mmol/L (3.5-5.5); Total Protein, Blood 6.7 g/dL (6.4-8.2)
[2024-06-11] MEDS ORDERED: Lidocaine 4% 1 Patch TOP PRN (09:00)
[2024-06-11 19:17] VITALS: BP 108/66
--- NOTE | 2024-06-11 19:19 | NUR ---
SHIFT SUMMARY: PT IS A/O X 4. CONTINUES TO BE ON RA. NO APPARENT RESPIRATORY DISTRESS THROUGH THE DAY. PT PAIN MANAGED WITH ALTERNATING OXYCODONE, DILAUDID AND TORADOL. PT REPORTS LIDOCAINE MAY HAVE HELPED WITH THE PAIN. PT IS EATING WELL AND DRINKING FLUIDS WELL. R ARM REMAINS WRAPPED IN CHALINO BANDAGE. PT REPORTS CONTINUES TO HAVE FEELING IN FINGERS TO R HAND.
--- NOTE | 2024-06-11 19:41 | NUR ---
DR. ONEAL CONSULTED WITH PT. ORDERED A CT OF R WRIST W/O CONTRAST. WILL MAKE DECISION REGARDING XARELTO USE AND SURGERY AFTER REVIEWING CT SCAN.
--- NOTE | 2024-06-11 20:59 | NUR ---
SPOKE WITH DR. ONEAL AND HE STATED THAT THE XARELTO DOESNT NEED TO BE HELD BECAUSE OF POSSIBLE SURGERY. hE STATED THAT THE PT CAN REMAIN ON THE XARELTO AND STILL HAVE SURGERY AND THAT IT DOESNT NEED TO BE HELD
[2024-06-11] MEDS ORDERED: Rivaroxaban 10 MG Tab PO ONE (21:15)
[2024-06-11] MEDS ORDERED: Rivaroxaban 10 MG Tab PO SCH (21:20)
[2024-06-12] VITALS (32 sets, daily range): BP systolic 84–159; BP diastolic 49–85
--- NOTE | 2024-06-12 04:14 | NUR ---
SHIFT SUMMARY: PT ALERT ORIENTED X 4. WAS ABLE TO REST MUCH MORE TONITE. DR. KIMMY HSU DR. CAME IN AND SAW HIM TONITE AND ORDERED A CT SCAN OF HIS RT WRIST. CT CAME AND BROUGHT HIM DOWN FOR THE CT SCAN. I SPOKE WITH DR. ONEAL AND HE STATED THAT THERES NO NEED TO HOLD HIS XARELTO FOR SURGERY AND THAT HE CAN HAVE SURGERY EVEN ON THE XARELTO. ORDER WAS RECEIVED TO RESTART IT, C/I WRIST AND BACK PAIN. MEDICATED WITH DILAUDID, OXY AND TORADOL WITH GOOD PAIN CONTROL. HES BEEN GETTING UP AND AMBULATING IN HIS ROOM AND AMBULATING TO THE BATHROOM. REMAINS ON 2L O2 VIA NC AND IS SATTING 95-97%. HE USES A CPAP AT HOME. SLING INTACT TO RT ARM WITH GOOD CARD CHECKER. PT SLEEPING IN BED AT THIS TIME.
[2024-06-12 06:20] LABS: BASOPHILS ABSOLUTE AUTO 0.06 K/mm3 (0.00-0.23); BASOPHILS PERCENT AUTO 1 % (0-2); EOSINOPHILS ABSOLUTE AUTO 0.35 K/mm3 (0.00-0.68); EOSINOPHILS PERCENT AUTO 3 % (0-6); Hematocrit 45.4 % (37.0-53.0); IMMATURE GRAN ABSOLUTE AUTO 0.05 K/mm3 (0.00-0.10); IMMATURE GRAN PERCENT AUTO 1 % (0-1); LYMPHOCYTES ABSOLUTE AUTO 2.09 K/mm3 (0.84-5.20); LYMPHOCYTES PERCENT AUTO 21 % (21-46); MONOCYTES ABSOLUTE AUTO 1.15 K/mm3 (0.16-1.47); MONOCYTES PERCENT AUTO 11 % (4-13); Mean Corpuscular HGB 28.8 pg (26.0-34.0); Mean Corpuscular Volume 87 fL (80-100); Mean Platelet Volume 9.1 fL (9.1-12.4); NEUTROPHILS ABSOLUTE AUTO 6.46 K/mm3 (1.96-9.15); NEUTROPHILS PERCENT AUTO 64 % (41-73); Platelet Count 206 K/mm3 (150-400); RDW Coefficient Variation 12.3 % (11.7-14.2); RDW Standard Deviation 39.6 fL (35.1-46.3); White Blood Cell Count 10.16 K/mm3 (4.00-11.30)
[2024-06-12 06:56] LABS: Albumin, Blood 3.4 g/dL (3.4-5.0); Bilirubin, Total 2.2 mg/dL (0.1-1.0); Bun/Creatinine Ratio 23.7 (12.0-20.0); Calcium, Blood 9.1 mg/dL (8.5-10.1); Creatinine, Blood 0.89 mg/dL (0.60-1.20); Globulin, Blood 3.4 g/dL (2.2-4.0); Potassium, Blood 4.2 mmol/L (3.5-5.5); Total Protein, Blood 6.8 g/dL (6.4-8.2)
[2024-06-12] MEDS ORDERED: CeFAZolin Sodium 2,000 MG in NS 100 ML IV SCH (09:10)
--- NOTE | 2024-06-12 10:20 | NUR ---
NOTE PT VOICED HE WANTS TO PURSUE SURGERY. PT ATE BREAKFAST THIS AM. NOTIFIED DR. ONEAL. PER DR. ONEAL, HE WILL LOOK AT DOING SURGERY THIS EVENING/AFTERNOON AND START NPO NOW.
--- NOTE | 2024-06-12 15:43 | NUR ---
NOTES PT LEFT THE ROOM AT THIS TIME VIA GURNEY TO DAY SURGERY.
[2024-06-12] MEDS ORDERED: Lactated Ringer's 1,000 ML IV SCH (15:50)
[2024-06-12] MEDS ORDERED: Citric Acid/Sodium Citrate 30 ML BTL PO ONE (16:00)
[2024-06-12] MEDS ORDERED: Lidocaine HCl 4% 5 ML SDA ONE (16:00)
[2024-06-12] MEDS ORDERED: propofoL 20 ML IV ONE (16:21)
[2024-06-12] MEDS ORDERED: Sugammadex Sodium 200 MG/2ML SDV (100 MG/ML) ONE (16:22)
[2024-06-12] MEDS ORDERED: ePHEDrine Sulfate 50 MG/ML 1ML Injection ONE ×3 (16:31→17:16)
[2024-06-12] MEDS ORDERED: Ondansetron HCl 2 MG / ML 2ML Vial ONE ×2 (16:41→18:51)
[2024-06-12] MEDS ORDERED: Dexamethasone Sod Phos 10 MG/ML 1ML VIAL ONE (16:41)
[2024-06-12] MEDS ORDERED: Phenylephrine HCl 100 MCG/ML-NS 10MLSYR (1MG/10ML) ONE (16:41)
[2024-06-12] MEDS ORDERED: FentaNYL Citrate 50 MCG/ML 2 ML Injection ONE ×2 (16:48→19:04)
[2024-06-12] MEDS ORDERED: Midazolam HCl 1MG / ML 2ML Vial ONE (17:13)
--- NOTE | 2024-06-12 17:58 | NUR ---
SHIFT SUMMARY PT A&OX4. PT ADMITTED DUE TO FX OF WRIST AND RIBS DUE TO FALL. PT REPORTS PAIN. PAIN MANAGED PER EMAR, REST, DEEP BREATHING. R ARM WAS ELEVATED ON PILLOWS THROUGH SHIFT. TELE WAS DC'D PER ORDER. PT ON CONT PULSE OX, RA SATTING 89%-97%. PT USES INCENTIVE SPIROMETER AND FLUTTER VALVE T/O SHIFT, TOLERATING WELL. PT ABLE TO AMBULATE TO BATHROOM WITH SBA. PT WAS NPO SINCE 0830 FOR PROCEDURE TO R WRIST THIS PM. PATIENT LEFT THE ROOM AT 1543 TO DAY SURGERY. PT CURRENTLY STILL IN OR AT THIS TIME.
[2024-06-12] MEDS ORDERED: Rivaroxaban 10 MG Tab PO SCH (18:00)
[2024-06-12] MEDS ORDERED: Atorvastatin 40 MG Tab PO SCH (18:00)
[2024-06-12] MEDS ORDERED: HYDROmorphone HCl/Pf 1MG SYR ONE (18:48)
[2024-06-12] MEDS ORDERED: Morphine Sulfate 4 MG/1 ML Injection ONE (19:14)
--- NOTE | 2024-06-12 19:30 | NUR ---
CANNOT BRING PT PAIN DOWN TO TOLERABLE LEVEL MEDICATIONS AVAILABLE, WILL CONSULT Vanda KEMP CRNA BEFORE LEAVING PACU FOR PAIN CONTROL. DR ONEAL AT BEDSIDE DISCUSSING PAIN WITH PT.
[2024-06-12] MEDS ORDERED: Ketorolac Tromethamine 30mg Vial ONE (19:33)
[2024-06-12] MEDS ORDERED: Acetaminophen 500 MG Tab PO ONE (19:40)
--- NOTE | 2024-06-12 20:56 | NUR ---
PT RETURNED FROM PACU AT 2004. PT ALERT ORIENTED X 4. C/O SEVERE PAIN TO RT ARM AND WRIST. POST VS WERE STARTED. RT ARM IS WRAPPED IN CHALINO WRAP AND IS SPLINTED WITH GOOD CMS. REMAINS ON 3L O2 VIA NC. CONTINUES ON CONTINUOUS BEDSIDE PULSE OX SATTING 93% ON 3 L.
[2024-06-13] MEDS ORDERED: NS 500 ML IV ONE (01:18)
[2024-06-13] MEDS ORDERED: CeFAZolin Sodium 2,000 MG in NS 100 ML IV SCH (02:00)
--- NOTE | 2024-06-13 03:52 | NUR ---
SHIFT SUMMARY: PT ALERT ORIENTED X 4. ABLE TO VERBALIZE NEEDS. ARRIVED BACK FROM SURGERY AT 2004. HE HAS A SPLINT WITH CHALINO WRAP INTACT TO RT ARM SURGICAL SITE. HE HAD A RT DISTAL RADIUS ORIF WITH VOLAR PLATING. HES NOW ON O2 AT 2L VIA NC. NO S/S SOB NOTED. C/O SEVERE PAIN TO RT ARM. HES BEING MEDICATED WITH DILAUDID, OXY AND TORADOL. PAIN SEEMS TO BE CONTROLLED WITH THE ABOVE MEDS. HES SUPPOSED TO WEAR A SLING WHICH IS ON BEDSIDE TABLE WHEN HES OUT OF BED. HES REFUSING ICE TO THE AREA DUE TO HE STATES THAT IT MAKES IT SPASM MORE. REMAINS ON CONTINUOUS PULSE OX SATTING AT 95%. HES NON WEIGHT BEARING TO HIS RUE. RESTING IN BED AT THIS TIME.
[2024-06-13 04:58] VITALS: BP 99/60
[2024-06-13 05:13] VITALS: BP 113/62
[2024-06-13 05:54] VITALS: BP 139/100
[2024-06-13 06:56] LABS: BASOPHILS ABSOLUTE AUTO 0.02 K/mm3 (0.00-0.23); BASOPHILS PERCENT AUTO 0 % (0-2); EOSINOPHILS ABSOLUTE AUTO 0.01 K/mm3 (0.00-0.68); EOSINOPHILS PERCENT AUTO 0 % (0-6); Hematocrit 42.2 % (37.0-53.0); Hemoglobin 14.5 g/dL (13.5-17.5); IMMATURE GRAN ABSOLUTE AUTO 0.05 K/mm3 (0.00-0.10); IMMATURE GRAN PERCENT AUTO 0 % (0-1); LYMPHOCYTES ABSOLUTE AUTO 1.03 K/mm3 (0.84-5.20); LYMPHOCYTES PERCENT AUTO 8 % (21-46); MONOCYTES ABSOLUTE AUTO 0.67 K/mm3 (0.16-1.47); MONOCYTES PERCENT AUTO 5 % (4-13); Mean Corpuscular HGB 29.3 pg (26.0-34.0); Mean Corpuscular HGB Conc 34.4 g/dL (31.5-36.5); Mean Corpuscular Volume 85 fL (80-100); Mean Platelet Volume 9.4 fL (9.1-12.4); NEUTROPHILS ABSOLUTE AUTO 11.08 K/mm3 (1.96-9.15); NEUTROPHILS PERCENT AUTO 86 % (41-73); Platelet Count 231 K/mm3 (150-400); RDW Coefficient Variation 11.9 % (11.7-14.2); RDW Standard Deviation 36.6 fL (35.1-46.3); Red Blood Cell Count 4.95 M/mm3 (4.30-5.90); White Blood Cell Count 12.86 K/mm3 (4.00-11.30)
[2024-06-13 07:17] LABS: Albumin, Blood 3.2 g/dL (3.4-5.0); Albumin/Globulin Ratio 0.9 (0.8-1.8); Bilirubin, Total 1.5 mg/dL (0.1-1.0); Bun/Creatinine Ratio 28.7 (12.0-20.0); Calcium, Blood 8.8 mg/dL (8.5-10.1); Creatinine, Blood 0.8 mg/dL (0.60-1.20); Globulin, Blood 3.5 g/dL (2.2-4.0); Potassium, Blood 4.8 mmol/L (3.5-5.5); Total Protein, Blood 6.7 g/dL (6.4-8.2)
[2024-06-13 07:41] VITALS: BP 132/67
[2024-06-13] MEDS ORDERED: OxyCODONE HCL 5 MG TAB PO PRN (15:55)
[2024-06-13] MEDS ORDERED: Acetaminophen 500 MG Tab PO PRN (15:55)
[2024-06-13 16:05] VITALS: BP 127/70
--- NOTE | 2024-06-13 17:40 | NUR ---
PT A&OX4, VSS, RA, NON-TELE. SBA TO BATHROOM. PT HAS NOT HAD A BM SINCE ADMISSION, BOWEL MEDS GIVEN, MAG CITRATE ORDERED IF NO BM BY 1999 TONIGHT. COMPLAINS OF PAIN OF 7/10, IV TOREDOL AND DILAUDED DC. PT NOW HAS OXYCODONE, TYLENOL, AND CELEBREX FOR PAIN CONTROL. PT WALKED AROUND UNIT, TOLERATED WELL. USING INCENTIVE SPIROMETER AND FLUTTER VALVE. EDUCATION PROVIDED ON OPIATES AND CONSTIPATION. PLAN TO DC TOMORROW.
[2024-06-13] MEDS ORDERED: Magnesium Citrate 300 ML BTL PO ONE (20:00)
[2024-06-13 20:41] VITALS: BP 136/93
[2024-06-13] MEDS ORDERED: Celecoxib 100 MG Cap PO SCH (21:00)
--- NOTE | 2024-06-14 03:56 | NUR ---
PT C/O RIGHT ARM PAIN. PT C/O MISUNDERSTANDING OF HOSPITAL CARE. TEACHING DONE. MAG CITRATE GIVEN FOR BM. PT REPORTS GOOD RESULTS. PT MEDICATED FOR C/O OF PAIN. PT RESTING QUIETLY AT THIS TIME. PULSE OX IN USE. SATS 97%
[2024-06-14 04:56] VITALS: BP 113/72
[2024-06-14 07:17] VITALS: BP 128/70
[2024-06-14] MEDS ORDERED: OxyCODONE HCL 5 MG TAB PO ONE (11:10)
[2024-06-14] MEDS ORDERED: OXAYDO5 M1 PO (12:52)
[2024-06-14] MEDS ORDERED: MIRALAX17 GM PO (12:53)
[2024-06-14] MEDS ORDERED: ACET500 PO (12:54)
[2024-06-14] MEDS ORDERED: SENN187 PO (12:54)
[2024-06-14] MEDS ORDERED: CELE200 PO (12:54)
[2024-06-14] MEDS ORDERED: LIDO700A20 TOP (13:00)
--- NOTE | 2024-06-14 14:40 | NUR ---
DISCHARGE/ SHIFT SUMMARY PT A&OX4, VSS, RA. PAIN MANAGED BY PRN OXYCODONE AND TYLENOL. 2 LOOSE BMS THIS SHIFT. PT UP IN CHAIR FOR MEALS, SBA TO BATHROOM. PT TOOK SHOWER PRIOR TO DC. PT DISCHARGED TO HOME WITH DAUGHTER IN PRIVATE VEHICLE. EDUCATION PROVIDED ON PT CONDITION, NEW MEDICATIONS AND CHANGES IN PREVIOUS MEDICATIONS. PT STABLE ON DISCHARGE.
== END 2024-06-14 14:43 | disposition home or self-care (01) | DRG 981 ==
LOC: ER 19:29 → MEDS 23:39 → ENPENDDIS 06-13 14:08 → MEDS 06-14 14:43
PROVIDERS: Family Medicine; Orthopaedic Surgery Sports Medicine; Registered Nurse; Student in an Organized Health Care Education/Training Program; ADMIT Student in an Organized Health Care Education/Training Program
PROC: 0PSH04Z Reposition Right Radius with Internal Fixation Device, Open Approach (ICD-10-PCS; principal; 2024-06-12 16:00)
DX: S27.0XXA Traumatic pneumothorax, initial encounter (principal); J96.01 Acute respiratory failure with hypoxia; S22.41XA Multiple fractures of ribs, right side, initial encounter for closed fracture; S52.501A Unspecified fracture of the lower end of right radius, initial encounter for closed fracture; I50.32 Chronic diastolic (congestive) heart failure; Z60.2 Problems related to living alone; I48.91 Unspecified atrial fibrillation; Z79.01 Long term (current) use of anticoagulants; I10 Essential (primary) hypertension; I70.8 Atherosclerosis of other arteries; W11.XXXA Fall on and from ladder, initial encounter; Z88.5 Allergy status to narcotic agent
CPT/HCPCS: 29125; 36415; 70450; 71045; 71046; 71260; 72125; 73110; 73200; 80053; 85025; 85610; 94762; 96374-59; 96375-59; 99285-25; A9270; J0690; J1100; J1170; J1885; J2001; J2250; J2270; J2371; J2405; J2704; J3010; J7040; Q9967

== ENCOUNTER → 2024-11-12 | Outpatient (CLI) | payer MEDICARE, OTHER ==
[~2024-11-12] MED LIST changes: +ACET500 PO; +ATORVASTATIN CA20 MG PO; +CARVEDILOL12.5 MG PO; +CELE200 PO; +LIDO700A20 TOP; +MIRALAX17 GM PO; +NITR.4SL SL; +OXAYDO5 M1 PO; +SENN187 PO
== END ==
LOC: LAB 13:40 → LAB SHORT 13:40
DX: J42 Unspecified chronic bronchitis (principal)
CPT/HCPCS: 87070; 87205

== ENCOUNTER → 2024-11-20 | Outpatient (CLI) | payer MEDICARE, OTHER | END | disposition home or self-care (01) | LOC: LAB SHORT 17:10 → LAB 17:10 | DX: J42 Unspecified chronic bronchitis (principal) | CPT/HCPCS: 87070; 87205 ==

== ENCOUNTER → 2024-11-26 | Outpatient (CLI) | payer MEDICARE, OTHER | LOC: LAB 12:55 → LAB SHORT 12:55 | DX: J42 Unspecified chronic bronchitis (principal) ==

== ENCOUNTER → 2025-01-11 | Outpatient (CLI) | payer MEDICARE, OTHER ==
[2025-01-11 14:42] LABS: BASOPHILS ABSOLUTE AUTO 0.07 K/mm3 (0.00-0.23); BASOPHILS PERCENT AUTO 1 % (0-2); EOSINOPHILS ABSOLUTE AUTO 0.23 K/mm3 (0.00-0.68); EOSINOPHILS PERCENT AUTO 3 % (0-6); Hematocrit 46.8 % (37.0-53.0); Hemoglobin 15.7 g/dL (13.5-17.5); IMMATURE GRAN ABSOLUTE AUTO 0.04 K/mm3 (0.00-0.10); IMMATURE GRAN PERCENT AUTO 0 % (0-1); LYMPHOCYTES ABSOLUTE AUTO 2.25 K/mm3 (0.84-5.20); LYMPHOCYTES PERCENT AUTO 25 % (21-46); MONOCYTES ABSOLUTE AUTO 0.59 K/mm3 (0.16-1.47); MONOCYTES PERCENT AUTO 7 % (4-13); Mean Corpuscular HGB 28.3 pg (26.0-34.0); Mean Corpuscular HGB Conc 33.5 g/dL (31.5-36.5); Mean Corpuscular Volume 85 fL (80-100); Mean Platelet Volume 8.9 fL (9.1-12.4); NEUTROPHILS ABSOLUTE AUTO 5.73 K/mm3 (1.96-9.15); NEUTROPHILS PERCENT AUTO 64 % (41-73); Platelet Count 239 K/mm3 (150-400); RDW Coefficient Variation 12.4 % (11.7-14.2); Red Blood Cell Count 5.54 M/mm3 (4.30-5.90); White Blood Cell Count 8.91 K/mm3 (4.00-11.30)
[2025-01-11 15:02] LABS: Alanine Aminotransfer (ALT/SGP 48 U/L (12-78); Albumin, Blood 3.7 g/dL (3.4-5.0); Albumin/Globulin Ratio 1.1 (0.8-1.8); Alk Phos 88 U/L (40-126); Anion Gap 6 mmol/L (6-16); Aspartate Aminotrans (AST/SGOT 27 U/L (12-37); Bilirubin, Total 1.3 mg/dL (0.1-1.0); Blood Urea Nitrogen 10 mg/dL (8-24); Bun/Creatinine Ratio 12.3 (12.0-20.0); CHOL/HDL RATIO 2.9; CO2, Blood 32 mmol/L (21-32); Chloride, Blood 100 mmol/L (98-108); Cholesterol 102 mg/dL (50-200); Creatinine, Blood 0.81 mg/dL (0.60-1.20); Globulin, Blood 3.4 g/dL (2.2-4.0); Glomerular Filtration Rate 97 (60-); Glucose, Blood 111 mg/dL (70-99); HDL Cholesterol 35 mg/dL (>39); LDL/HDL RATIO 1.5; Low Density Lipoprotein Chol 54 mg/dL (<110); Potassium, Blood 4.3 mmol/L (3.5-5.5); Sodium, Blood 134 mmol/L (136-145); Total Protein, Blood 7.1 g/dL (6.4-8.2); Triglycerides 66 mg/dL (30-160); Very Low Density Lipoprot Chol 13 mg/dL (6-32)
== END ==
LOC: LAB SHORT 14:14 → LAB 14:14
PROVIDERS: Internal Medicine Cardiovascular Disease; Orthopaedic Surgery Sports Medicine
DX: I25.10 Atherosclerotic heart disease of native coronary artery without angina pectoris (principal); I48.0 Paroxysmal atrial fibrillation; R07.9 Chest pain, unspecified; Z79.01 Long term (current) use of anticoagulants; E55.9 Vitamin D deficiency, unspecified; M25.531 Pain in right wrist; Z87.81 Personal history of (healed) traumatic fracture; Z98.890 Other specified postprocedural states
CPT/HCPCS: 36415; 80053; 80061; 82306; 84443; 85025; 85651; 86140